=== PATIENT | male | born 1980 | race African-American/Black ===

== ENCOUNTER 2018-02-12 07:37 | Emergency (ER) | payer OTHER ==
[~2018-02-12] VITALS: Ht 177.8 cm; Wt 104.3 kg
[2018-02-12 07:52] VITALS: TEMP 98.4
[2018-02-12 08:05] LABS: PLATELET COUNT 118 K/uL (142-355)
[2018-02-12 08:14] LABS: POTASSIUM 3.9 mmol/L (3.6-5.2); SODIUM 140 mmol/L (136-145)
[2018-02-12 10:37] VITALS: BP 126/84
== END 2018-02-12 10:37 | disposition home or self-care (01) ==
LOC: ED 07:37
DX: M94.0 Chondrocostal junction syndrome [Tietze] (principal); R00.1 Bradycardia, unspecified
CPT/HCPCS: 36415; 80053; 81000; 82150; 82550; 82553; 83690; 84484; 85027; 93005; 96374; 99284; J1885